=== PATIENT | male | born 1950 | race Caucasian/White ===

== ENCOUNTER → 2021-03-25 | Outpatient (CLI) | payer OTHER | LOC: ECHO 10:00 | DX: I63.9 Cerebral infarction, unspecified (principal); K21.9 Gastro-esophageal reflux disease without esophagitis; E78.2 Mixed hyperlipidemia; F43.10 Post-traumatic stress disorder, unspecified; Z87.820 Personal history of traumatic brain injury | CPT/HCPCS: ECHO; 93306 ==